=== PATIENT | male | born 1990 ===

== ENCOUNTER → 2020-12-20 13:17 | Outpatient (ROUT) | payer OTHER, SELFPAY ==
[2020-12-20 14:58] LABS: COVID19 -Nasal RAPID POSITIVE (Negative)
== END ==
PROVIDERS: Visit Provider Family Medicine
DX: U07.1 COVID-19 (principal)
CPT/HCPCS: 87635

== ENCOUNTER → 2020-12-29 13:46 | Outpatient (ROUT) | payer OTHER, SELFPAY ==
[2020-12-29 14:57] LABS: COVID19 -Nasal RAPID Negative (Negative)
== END ==
PROVIDERS: Visit Provider Family Medicine
DX: Z20.822 Contact with and (suspected) exposure to COVID-19 (principal)
CPT/HCPCS: 87635